=== PATIENT | male | born 1960 | race Caucasian/White ===

== ENCOUNTER 2017-01-11 00:33 | Emergency (ER) | payer OTHER ==
[2017-01-11 00:47] VITALS: BP 147/99; PULSE 91; RESP 18; O2SAT 95
[2017-01-11] MEDS ORDERED: ZANT150T2 PO (00:56)
[2017-01-11] MEDS ORDERED: LISI10TA3 PO (00:56)
[2017-01-11 01:15] LABS: AUTOMATED NEUTROPHIL # 3.2 TH/MM3 (1.8-7.7); BASOPHIL % 0.6 % (0.0-2.0); EOSINOPHIL # 0.1 TH/MM3 (0-0.4); EOSINOPHIL % 1.1 % (0.0-4.0); HEMATOCRIT 51.2 % (39.0-51.0); HEMO FLAGS DIFF FINAL; LYMPH % 29.8 % (9.0-44.0); LYMPHOCYTE # 1.6 TH/MM3 (1.0-4.8); MEAN CELL VOLUME 91.7 FL (80.0-100.0); MEAN CORPUSCULAR HEMOGLOBIN 30.7 PG (27.0-34.0); MEAN CORPUSCULAR HGB CONC 33.5 % (32.0-36.0); MONO % 8.7 % (0.0-8.0); NEUT % 59.8 % (16.0-70.0); PLATELET COUNT 217 TH/MM3 (150-450); RED BLOOD COUNT 5.59 MIL/MM3 (4.50-5.90); RED CELL DISTRIBUTION WIDTH 13.1 % (11.6-17.2); WHITE BLOOD COUNT 5.3 TH/MM3 (4.0-11.0)
[2017-01-11 01:38] LABS: ALT (GPT) 54 U/L (12-78); ANION GAP 9 MEQ/L (5-15); AST (GOT) 38 U/L (15-37); BICARBONATE 22.7 MEQ/L (21.0-32.0); BLOOD UREA NITROGEN 11 MG/DL (7-18); CHLORIDE 106 MEQ/L (98-107); GLOMERULAR FILTRATION RATE 79 ML/MIN (>89); POTASSIUM 4.1 MEQ/L (3.5-5.1); SODIUM (NA) 138 MEQ/L (136-145)
[2017-01-11 01:40] LABS: ALKALINE PHOSPHATASE 75 U/L (45-117); TOTAL BILIRUBIN ADULT 0.5 MG/DL (0.2-1.0)
[2017-01-11 01:53] LABS: ALCOHOL 135 MG/DL (0-5)
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
[2017-01-11 08:12] VITALS: BP 131/93; PULSE 91; RESP 18; TEMP 98.2; O2SAT 97
[2017-01-11 12:27] VITALS: BP 148/96
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
== END 2017-01-11 15:40 | disposition home or self-care (01) ==
LOC: NEPD 00:33 → NEPJ 15:40
DX: F10.929 Alcohol use, unspecified with intoxication, unspecified (principal); F39 Unspecified mood [affective] disorder; F12.90 Cannabis use, unspecified, uncomplicated; I10 Essential (primary) hypertension; Y90.6 Blood alcohol level of 120-199 mg/100 ml; Z88.0 Allergy status to penicillin
CPT/HCPCS: 80053; 80307; 85025; 99284